=== PATIENT | male | born 1965 | race Caucasian/White ===

== ENCOUNTER 2017-06-04 03:16 | Emergency (ER) | payer OTHER ==
[2017-06-04 05:24] LABS: HEMOGLOBIN 14.9 gm/dl (14.0-17.5); RED BLOOD COUNT 4.86 M/UL (4.20-5.50); WHITE BLOOD COUNT 7.9 K/UL (4.5-11.0)
[2017-06-04 05:41] LABS: BUN/CREATININE RATIO 21 (0-10)
== END 2017-06-04 07:15 | disposition home or self-care (01) ==
LOC: ER1 03:16
PROVIDERS: Family Medicine
DX: M32.10 Systemic lupus erythematosus, organ or system involvement unspecified (principal); Z79.899 Other long term (current) drug therapy
CPT/HCPCS: 36415; 71020; 80053; 81001; 85025; 86140; 99283

== ENCOUNTER 2021-12-10 16:21 | Emergency (ER) | payer MEDICARE | END 2021-12-10 18:16 | disposition home or self-care (01) | LOC: ER1 16:21 | DX: R21 Rash and other nonspecific skin eruption (principal) | CPT/HCPCS: 99282 ==